=== PATIENT | female | born 1960 | race Caucasian/White ===

== ENCOUNTER 2018-08-26 08:45 | Day surgery (SDC) | payer OTHER ==
[~2018-08-26] VITALS: Ht 167.6 cm; Wt 67.9 kg
[~2018-08-26 08:45] MED LIST: CEPH500 PO; CHOL10002 PO; DESV50 PO; ESTR2 PO; Estradiol1 MG PO; LAMO50 PO; LITH300C; Lamictal150 MG PO; MORP15ER; MORP15ER PO; Pristiq100 MG PO; TOPI25 PO; TRAZ100 PO; Zofran Odt4 MG SL
[2018-08-26] MEDS ORDERED: FISH OIL + D31 EACH (09:12)
--- NOTE | 2018-08-26 12:43 | NUR ---
08/26/18 1243 Yasir Marcos NURSE ASSISTED PATIENT WALK OUT TO HER RIDE HOME
== END 2018-08-26 11:05 | disposition home or self-care (01) ==
LOC: ORSCSDS 08:45
PROVIDERS: Surgery
PROC: 0DJD8ZZ Inspection of Lower Intestinal Tract, Via Natural or Artificial Opening Endoscopic (ICD-10-PCS; principal; 2018-08-26 09:45)
DX: K62.5 Hemorrhage of anus and rectum (principal); R19.4 Change in bowel habit; K64.8 Other hemorrhoids; Z79.899 Other long term (current) drug therapy
CPT/HCPCS: J7120

== ENCOUNTER → 2018-09-16 | Outpatient (CLI) | payer OTHER ==
[~2018-09-16] MED LIST changes: +FISH OIL + D31 EACH
== END ==
LOC: LAB SHORT 15:45 → LAB 15:45
DX: N39.0 Urinary tract infection, site not specified (principal)
CPT/HCPCS: 87077; 87086; 87186